=== PATIENT | female | born 2000 | race Caucasian/White ===

== ENCOUNTER 2019-03-12 12:41 | Emergency (ER) | payer OTHER ==
[2019-03-12 12:51] VITALS: BP 129/76; PULSE 62; TEMP 98.8; BMI 33.0
--- NOTE | 2019-03-12 13:28 | PDOC ---
History of Present Illness - General Chief Complaint: Injury Stated Complaint: RT ANKLE PAIN Time Seen by Provider: 03/12/19 13:06 History Source: Patient - History of Present Illness Occurred: reports: last week Severity: Yes: mild Lower Extremity Pain Location: right: foot Method of Injury: Yes: direct blow Past History - Past Medical History Allergies/Adverse Reactions: Allergies Allergy/AdvReac Type Severity Reaction Status Date / Time No Known Allergies Allergy Verified 03/12/19 12:51 COPD: No - Psycho Social/Smoking Cessation Hx Smoking History: Never smoked Have you smoked in the past 12 months: No Information on smoking cessation initiated: No Hx Alcohol Use: No Drug/Substance Use Hx: No Review of Systems - Review of Systems Musculoskeletal: Yes: Joint Pain. No: Joint Swelling *Physical Exam - Vital Signs Last Vital Signs Temp Pulse Resp BP Pulse Ox 98.8 F 62 18 129/76 100 03/12/19 12:49 03/12/19 12:49 03/12/19 12:49 03/12/19 12:49 03/12/19 12:49 - Physical Exam General Appearance: Yes: Appropriately Dressed. No: Apparent Distress HEENT: positive: Normal Voice Neck: positive: Supple Respiratory/Chest: negative: Respiratory Distress Extremity: positive: Normal Range of Motion, Other (~4x2 cm contusion to medial R foot, no swelling) Integumentary: positive: Dry, Warm Neurologic: positive: Fully Oriented, Alert, Normal Mood/Affect Medical Decision Making - Medical Decision Making 03/12/19 13:25 19-year-old female, no significant history, states she was kicked on the right foot over a week ago while playing soccer and has been having pain ever since. Is getting better per patient. Has bruise to site. Has been bearing weight since injury. Patient well-appearing and stable with contusion to medial right foot. DC with [id number] pain medication as needed. Ortho f/u as needed Discharge - Discharge Information Problems reviewed: Yes Clinical Impression/Diagnosis: Foot contusion Qualifiers: Encounter type: initial encounter Laterality: right Qualified Code(s): S90.31XA - Contusion of right foot, initial encounter Condition: Good Disposition: HOME - Follow up/Referral Referrals: Dayton Joaquin MD [Primary Care Provider] - Bernabe Brennan MD [Staff Physician] - - Patient Discharge Instructions Patient Printed Discharge Instructions: Contusion Additional Instructions: Take Motrin or Tylenol for pain and if pain persist after 2 weeks, follow-up with Dr. Brennan of orthopedics - Post Discharge Activity Work/Back to School Note: Back to School
== END 2019-03-12 13:25 | disposition home or self-care (01) ==
LOC: JERFT 12:41
DX: S90.31XA Contusion of right foot, initial encounter (principal); W50.1XXA Accidental kick by another person, initial encounter; Y93.66 Activity, soccer; Y92.322 Soccer field as the place of occurrence of the external cause; Y99.8 Other external cause status
CPT/HCPCS: 99281-25

== ENCOUNTER 2024-10-17 18:25 | Inpatient (IN) | payer OTHER ==
[2024-10-17] MEDS: LACTATED RINGERS SOLUTION 1,000 ML IV SCH (19:30)
[2024-10-17 20:02] LABS: ABSOLUTE IMMATURE GRANULOCYTES 0.02 x10^3/uL (0.0-0.031); BASOPHILS # 0.01 x10^3/uL (0.01-0.08); EOSINOPHIL % 2.3 % (0.7-5.8); EOSINOPHILS # 0.17 x10^3/uL (0.04-0.36); HEMATOCRIT 35.4 % (34.1-44.9); HEMOGLOBIN 11.7 g/dL (11.2-15.7); MCHC 33.1 g/dl (32.2-35.5); MEAN CELL VOLUME 85.9 fl (79.4-94.8); MEAN PLT VOLUME 11.8 fl (9.4-12.3); MONOCYTE # 0.49 x10^3/uL (0.24-0.86); MONOCYTE % 6.6 % (4.7-12.5); PLATELET COUNT 174 x10^3/uL (182-369); RDW 15.9 % (12.1-16.5)
[2024-10-17 20:10] LABS: INR 0.9 (0.83-1.09); PROTHROMBIN TIME (PATIENT) 9.9 SEC (9.7-13.0)
[2024-10-17 20:12] LABS: ACTIVATED PTT 28.1 SECONDS (25.2-36.5)
[2024-10-17 20:16] VITALS: BMI 39.4
[2024-10-17 21:00] LABS: POTASSIUM 3.5 mmol/L (3.5-5.1)
[2024-10-17 21:06] LABS: BLOOD UREA NITROGEN 12.4 mg/dL (7-18); CALCIUM 8.7 mg/dL (8.5-10.1)
[2024-10-17 21:10] LABS: CREATININE 0.6 mg/dL (0.55-1.3)
[2024-10-17] MEDS: LACTATED RINGERS SOLUTION 1,000 ML/1,000 ML INFUS.BAG IV SCH (21:25)
[2024-10-17] MEDS ORDERED: INSULIN ASPART SLIDING SCALE (NOVOLOG) 1 VIAL SQ SCH (21:30)
[2024-10-17] MEDS ORDERED: OXYTOCIN 30 UNITS in 0.9% NS 30 UNIT/500 ML INFUS.BAG IVPB ONE (22:53)
[2024-10-17] MEDS: OXYTOCIN 30 UNITS in 0.9% NS 30 UNIT/500 ML INFUS.BAG IVPB SCH (23:00)
[2024-10-17] MEDS: INSULIN ASPART SLIDING SCALE (NOVOLOG) 1 VIAL SQ SCH (23:30)
[2024-10-17] MEDS ORDERED: FENTANYL/BUPIVACAINE/NS/PF - PCEA - 50 ML DISP.SYRIN EP ONE (23:31)
[2024-10-17] MEDS ORDERED: BUPIVACAINE HCL/PF 0.25% (2.5MG/ML) 10 ML VIAL ONE (23:38)
[2024-10-17] MEDS ORDERED: FENTANYL CITRATE/PF 50 MCG/ML VIAL ONE (23:38)
[2024-10-17] MEDS: FENTANYL/BUPIVACAINE/NS/PF - PCEA - 50 ML DISP.SYRIN EP SCH (23:55)
[2024-10-17] MEDS ORDERED: NALOXONE HCL 0.4 MG/ML VIAL IVPUSH PRN (23:58)
[2024-10-18] MEDS: BUTORPHANOL TARTRATE 2 MG/ML VIAL IVPB ONE (00:19)
[2024-10-18] MEDS: PROMETHAZINE HCL 25 MG/1 ML VIAL IVPB ONE (00:19)
[2024-10-18] MEDS ORDERED: FENTANYL CITRATE/PF 50 MCG/ML VIAL ONE (02:10)
[2024-10-18] MEDS ORDERED: FENTANYL/BUPIVACAINE/NS/PF - PCEA - 50 ML DISP.SYRIN EP ONE ×2 (03:27→07:23)
[2024-10-18] MEDS ORDERED: OXYTOCIN 20 UNITS in 0.9% NS 20 UNIT/1,000 ML INFUS.BAG IV ONE (08:38)
[2024-10-18] MEDS ORDERED: LIDOCAINE HCL 1% PRESERVATIVE FREE - 30ML VIAL ONE (08:53)
[2024-10-18] MEDS: OXYTOCIN 20 UNITS in 0.9% NS 20 UNIT/1,000 ML INFUS.BAG IV SCH (09:10)
[2024-10-18 09:53] LABS: CORD BASE EXCESS -2.6 mmol/L (0-2); CORD PCO2 42.7 mmHg (30-78)
[2024-10-18 10:06] LABS: CORD pH 7.35 (7.14-7.44)
[2024-10-18] MEDS ORDERED: ACETAMINOPHEN 325 MG TABLET (FP) PO PRN (10:08)
[2024-10-18] MEDS ORDERED: WITCH HAZEL 50% (TUCKS) 40 PAD/JAR PAD TP PRN (10:08)
[2024-10-18] MEDS ORDERED: METHYLERGONOVINE MALEATE 0.2 MG/1 ML AMP IM PRN (10:08)
[2024-10-18] MEDS ORDERED: BISACODYL 10 MG SUPP.RECT RC PRN (10:08)
[2024-10-18] MEDS ORDERED: BENZOCAINE 20% 57 GM BOTTLE TP PRN (10:08)
[2024-10-18] MEDS ORDERED: oxyCODONE HCL 5 MG TABLET PO PRN (10:08)
[2024-10-18] MEDS ORDERED: BENZOCAINE 28 GM HEMORRHOIDAL OINTMENT TP PRN (10:08)
[2024-10-18] MEDS ORDERED: INSULIN (NOVOLOG) ASPART 100 UNITS/ML 10ML VIAL ONE (15:23)
[2024-10-18] MEDS: IBUPROFEN 600 MG TABLET (FP) PO PRN (15:24)
[2024-10-19] MEDS: SENNOSIDES/DOCUSATE COMBO (SENNA PLUS) TABLET (UD) PO PRN (01:50)
[2024-10-19 08:16] LABS: ABSOLUTE IMMATURE GRANULOCYTES 0.07 x10^3/uL (0.0-0.031); BASOPHILS # 0.02 x10^3/uL (0.01-0.08); EOSINOPHIL % 0.9 % (0.7-5.8); EOSINOPHILS # 0.11 x10^3/uL (0.04-0.36); HEMATOCRIT 29.5 % (34.1-44.9); HEMOGLOBIN 9.6 g/dL (11.2-15.7); MCHC 32.5 g/dl (32.2-35.5); MONOCYTE # 0.67 x10^3/uL (0.24-0.86); MONOCYTE % 5.4 % (4.7-12.5); PLATELET COUNT 150 x10^3/uL (182-369); RDW 16.2 % (12.1-16.5)
[2024-10-19 23:04] VITALS: PULSE 82; RESP 18
[2024-10-20 09:48] VITALS: BP 135/81; TEMP 98.5
== END 2024-10-20 16:05 | disposition home or self-care (01) | DRG 560 ==
LOC: JDEL 18:25 → JLDR 19:05 → J3W 10-18 11:50
PROVIDERS: ADMIT Obstetrics & Gynecology; ATTEND Obstetrics & Gynecology
PROC: 10E0XZZ Delivery of Products of Conception, External Approach (ICD-10-PCS; principal; 2024-10-20)
PROC: 0W8NXZZ Division of Female Perineum, External Approach (ICD-10-PCS; 2024-10-20)
DX: O24.429 Gestational diabetes mellitus in childbirth, unspecified control (principal); Z3A.38 38 weeks gestation of pregnancy; Z37.0 Single live birth
CPT/HCPCS: 36415; 36600; 59409; 80048; 82803; 82962; 85025; 85610; 85730; 86780; 86850; 86900; 86901

== ENCOUNTER 2025-02-24 22:55 | Inpatient (IN) | payer OTHER ==
[2025-02-24 23:10] VITALS: BMI 35.6
[2025-02-25] MEDS: SODIUM CHLORIDE 0.9% 500 ML INFUS.BAG IV ONE (00:08)
[2025-02-25 00:37] LABS: ABSOLUTE IMMATURE GRANULOCYTES 0.01 x10^3/uL (0.0-0.031); BASOPHILS # 0.01 x10^3/uL (0.01-0.08); EOSINOPHIL % 4.6 % (0.7-5.8); EOSINOPHILS # 0.32 x10^3/uL (0.04-0.36); MCHC 33.2 g/dl (32.2-35.5); MEAN CELL VOLUME 87.0 fl (79.4-94.8); MEAN PLT VOLUME 11.3 fl (9.4-12.3); MONOCYTE # 0.45 x10^3/uL (0.24-0.86); MONOCYTE % 6.4 % (4.7-12.5); RDW 14.1 % (12.1-16.5)
[2025-02-25 00:46] LABS: INR 1.05 (0.83-1.09); PROTHROMBIN TIME (PATIENT) 11.5 SEC (9.7-13.0)
[2025-02-25 00:49] LABS: ACTIVATED PTT 32.6 SECONDS (25.2-36.5)
[2025-02-25 01:04] LABS: GLUCOSE,RANDOM 117.0 mg/dL (74-106)
[2025-02-25 01:05] LABS: TOT PROT 7.7 g/dl (6.4-8.2)
[2025-02-25 01:06] LABS: CO2 22.0 mmol/L (21-32)
[2025-02-25 01:07] LABS: ALK PHOS 95.0 U/L (40-150)
[2025-02-25 01:10] LABS: CREATININE 0.6 mg/dL (0.55-1.3); SGOT/AST 25.0 U/L (5-34); SGPT/ALT 30.0 U/L (0-55)
[2025-02-25 01:18] LABS: ABSOLUTE IMMATURE GRANULOCYTES 0.02 x10^3/uL (0.0-0.031); BASOPHILS # 0.01 x10^3/uL (0.01-0.08); EOSINOPHIL % 3.4 % (0.7-5.8); EOSINOPHILS # 0.30 x10^3/uL (0.04-0.36); MCHC 32.7 g/dl (32.2-35.5); MEAN CELL VOLUME 88.7 fl (79.4-94.8); MEAN PLT VOLUME 11.1 fl (9.4-12.3); MONOCYTE # 0.42 x10^3/uL (0.24-0.86); MONOCYTE % 4.7 % (4.7-12.5); RDW 14.3 % (12.1-16.5)
[2025-02-25] MEDS: ESTROGENS,CONJUGATED 25 MG VIAL IVPB ONE ×2 (01:35→03:39)
[2025-02-25 01:39] LABS: HCV DIAGNOSTIC IN-HOUSE W/RFLX NON-REACTIVE (NONREACTIVE); HIV INTERPRETATION NEGATIVE (NEGATIVE)
[2025-02-25] MEDS: ESTROGENS,CONJUGATED 1.25 MG TABLET PO ONE (02:10)
[2025-02-25 02:14] LABS: ABSOLUTE IMMATURE GRANULOCYTES 0.03 x10^3/uL (0.0-0.031); BASOPHILS # 0.02 x10^3/uL (0.01-0.08); EOSINOPHIL % 2.4 % (0.7-5.8); EOSINOPHILS # 0.25 x10^3/uL (0.04-0.36); MCHC 33.1 g/dl (32.2-35.5); MEAN CELL VOLUME 87.7 fl (79.4-94.8); MEAN PLT VOLUME 11.4 fl (9.4-12.3); MONOCYTE # 0.45 x10^3/uL (0.24-0.86); MONOCYTE % 4.3 % (4.7-12.5); RDW 14.1 % (12.1-16.5)
[2025-02-25 02:40] LABS: ABSOLUTE IMMATURE GRANULOCYTES 0.03 x10^3/uL (0.0-0.031); BASOPHILS # 0.02 x10^3/uL (0.01-0.08); EOSINOPHIL % 2.0 % (0.7-5.8); EOSINOPHILS # 0.22 x10^3/uL (0.04-0.36); MCHC 33.8 g/dl (32.2-35.5); MEAN CELL VOLUME 87.5 fl (79.4-94.8); MEAN PLT VOLUME 10.9 fl (9.4-12.3); MONOCYTE # 0.63 x10^3/uL (0.24-0.86); MONOCYTE % 5.8 % (4.7-12.5); RDW 14.0 % (12.1-16.5)
[2025-02-25] MEDS ORDERED: TRANEXAMIC ACID 1000 MG/10 ML VIAL ONE (03:11)
[2025-02-25] MEDS: TRANEXAMIC ACID 1000 MG/10 ML VIAL IVPUSH ONE (03:15)
[2025-02-25 04:27] LABS: ABSOLUTE IMMATURE GRANULOCYTES 0.04 x10^3/uL (0.0-0.031); BASOPHILS # 0.02 x10^3/uL (0.01-0.08); EOSINOPHIL % 0.8 % (0.7-5.8); EOSINOPHILS # 0.10 x10^3/uL (0.04-0.36); MCHC 32.1 g/dl (32.2-35.5); MEAN CELL VOLUME 90.1 fl (79.4-94.8); MEAN PLT VOLUME 11.3 fl (9.4-12.3); MONOCYTE # 0.74 x10^3/uL (0.24-0.86); MONOCYTE % 6.2 % (4.7-12.5); RDW 13.7 % (12.1-16.5)
[2025-02-25] MEDS: ELECTROLYTE-148 SOLN 1,000 ML IV SCH (05:00)
[2025-02-25 06:21] VITALS: RESP 18
[2025-02-25 10:05] LABS: ABSOLUTE IMMATURE GRANULOCYTES 0.03 x10^3/uL (0.0-0.031); BASOPHILS # 0.02 x10^3/uL (0.01-0.08); EOSINOPHIL % 0.3 % (0.7-5.8); EOSINOPHILS # 0.03 x10^3/uL (0.04-0.36); MCHC 32.8 g/dl (32.2-35.5); MEAN CELL VOLUME 87.5 fl (79.4-94.8); MEAN PLT VOLUME 11.5 fl (9.4-12.3); MONOCYTE # 0.53 x10^3/uL (0.24-0.86); MONOCYTE % 5.0 % (4.7-12.5); RDW 13.9 % (12.1-16.5)
[2025-02-25 10:16] VITALS: BP 109/65; PULSE 104; TEMP 99
== END 2025-02-25 12:50 | disposition home or self-care (01) | DRG 532 ==
LOC: JER 22:55 → JERBED 02-25 02:41 → J3W 02-25 05:06
PROVIDERS: ADMIT Obstetrics & Gynecology; ATTEND Obstetrics & Gynecology
PROC: 30233N1 Transfusion of Nonautologous Red Blood Cells into Peripheral Vein, Percutaneous Approach (ICD-10-PCS; principal; 2025-02-25)
DX: N93.9 Abnormal uterine and vaginal bleeding, unspecified (principal); D64.9 Anemia, unspecified; R42 Dizziness and giddiness
CPT/HCPCS: 36415; 36430; 76830-TC; 80053; 82962; 83605; 84702; 85025; 85610; 85730; 86803; 86850; 86900; 86901; 86922; 87389; 93005; 93010; 99291; J1410; P9038; P9058